=== PATIENT | female | born 1965 | race Two or more races ===

== ENCOUNTER 2020-07-19 15:08 | Outpatient (CLI) | payer OTHER | END 2020-07-19 17:29 | disposition home or self-care (01) | LOC: OFIC 805 15:08 | PROVIDERS: ATTEND Otolaryngology Otology & Neurotology | DX: J30.89 Other allergic rhinitis (principal); R49.0 Dysphonia; J00 Acute nasopharyngitis [common cold]; K21.9 Gastro-esophageal reflux disease without esophagitis ==